=== PATIENT | male | born 1980 | race Caucasian/White ===

== ENCOUNTER 2020-11-14 19:33 | Emergency (ER) | payer OTHER, SELFPAY ==
[2020-11-14 19:35] VITALS: BP 144/82; PULSE 62; RESP 19; TEMP 36.6; O2SAT 98; BMI 25.1
--- NOTE | 2020-11-14 20:18 | HMH.EDUTC ---
[facility] [place] Disposition Clinical Impression: Cough, Wheezing Allergic rhinitis Qualifiers: Allergic rhinitis trigger: unspecified Allergic rhinitis seasonality: seasonal Qualified Code(s): J30.2 - Other seasonal allergic rhinitis Disposition: Home, Self-Care Condition on Discharge: Good Instructions: Cough, DI for Asthma -- Adult Additional Instructions: needs to arrange appointment with pcp-list given needs worked up for possible asthma/copd stop smoking if symptoms worsen or do not improve return or be seen in ed Prescriptions: Albuterol Sulfate [Albuterol Sulfate Hfa] 6.7 gm IH Q6 PRN 30 Days #1 [email or web address] PRN Reason: Cough Transmission Status: Pending to [facility] Loratadine [Claritin 10mg Tablet] 10 mg PO DAILY #30 tab Transmission Status: Pending to [facility] predniSONE [Prednisone 20mg Tab] 20 mg PO BID #10 tab Transmission Status: Pending to [facility] Referrals: Provider,Referral, MD [Primary Care Provider] - Time of Disposition: 20:25 Medical Decision Making - Ar Inquiry Pt receiving controlled substance: No Vital Signs: 11/14/20 19:35 Temperature 97.9 F Temperature Source Oral Pulse Rate [Left Brachial] 62 Respiratory Rate 19 Blood Pressure [Left Arm] 144/82 H Blood Pressure Mean [Left Arm] 102 Blood Pressure Source [Left Arm] Automatic Cuff Blood Pressure Position [Left Arm] Sitting 02 Sat by Pulse Oximetry 98 Oxygen Delivery Method Room Air [facility] [place] HPI - General Chief complaint: Urgent Treatment [facility] Stated complaint: coughing, drainage, head congestion Time Seen by Provider: 11/14/20 20:18 Mode of Arrival: Ambulatory Source of Information: Patient Limitations: No Limitations Description of Symptoms (Recalled from Triage Doc. by RN): PATIENT C/O CHEST CONGESTION AND SEVERE COUGHING WITH EXERTION X MONTHS HEENT Symptoms (Recalled from RN notes): No Resp Symptoms (Recalled from RN notes): Yes Skin Symptoms (Recalled from RN notes): No MS Symptoms (Recalled from RN notes): No Functional Status (Recalled from RN notes): WNL - History of Present Illness Provider Complaint: 39 yr old male presents for coughing and clear drainage for months. pt states he smokes and has stopped for a couple days and still had symptoms. pt states any task causes him to cough. - Related Data Previous Rx's Medication Instructions Recorded Albuterol Sulfate [Albuterol 6.7 gm IH Q6 PRN 30 Days #1 11/14/20 Sulfate Hfa] [email or web address] Loratadine [Claritin 10mg 10 mg PO DAILY #30 tab 11/14/20 Tablet] predniSONE [Prednisone 20mg 20 mg PO BID #10 tab 11/14/20 Tab] Allergies Allergy/AdvReac Type Severity Reaction Status Date / Time No Known Allergies Allergy Verified 08/10/19 22:59 - Worker's Comp Is this a Worker's Comp case?: No [facility] History - Hepatitis A Screen Drug use history?: No High risk sexual behaviors?: No History of sexually transmitted infection?: No Currently employed?: No Childcare worker?: No Do you have indoor plumbing?: Yes Do you have electricity?: Yes Attestation statement:: This patient has been screened for Hepatitis A risk factors. I have reviewed the patient's past medical history: Yes Laterality Cases: Bilateral: Tonsillectomy - Social History Smoking Status: Current every day smoker # Packs/Day (cigarettes): 1 Alcohol Intake: never Occupational Status: other Household Members: family ROS Obtained: Yes Systems reviewed as appropriate & no additional complaints - Constitutional Constitutional: Reports system reviewed and no additional complaints, except as docu, Denies body ache, Denies fatigue - Eyes Eyes: Reports system reviewed and no additional complaints, except as docu, Denies blurry vision - ENT Ears, Nose, Mouth, and Throat: Reports system reviewed and no additional complaints, except as docu, Denies nasal congestion, Denies sore throat - Cardiovascular Cardiovascular: Reports system r
[2020-11-14 20:19] VITALS: BP 144/82; PULSE 62; RESP 19; TEMP 36.6; O2SAT 98
== END 2020-11-14 20:30 | disposition home or self-care (01) ==
PROVIDERS: Emergency Provider Nurse Practitioner Family
DX: J30.2 Other seasonal allergic rhinitis (principal); F17.210 Nicotine dependence, cigarettes, uncomplicated
CPT/HCPCS: 99202; G0463

== ENCOUNTER 2020-11-17 14:50 | Emergency (ER) | payer OTHER, SELFPAY ==
[2020-11-17 14:52] VITALS: BP 140/78; PULSE 87; RESP 18; TEMP 36.7; O2SAT 98; BMI 25.1
[2020-11-17 15:05] VITALS: PULSE 85; RESP 18; TEMP 36.8; O2SAT 99; BMI 25.2
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
[2020-11-17 15:53] VITALS: BP 132/82; PULSE 93; RESP 16; TEMP 36.6
== END 2020-11-17 15:58 | disposition home or self-care (01) ==
PROVIDERS: Emergency Provider Nurse Practitioner Family
DX: T24.202A Burn of second degree of unspecified site of left lower limb, except ankle and foot, initial encounter (principal); X06.2XXA Exposure to ignition of other clothing and apparel, initial encounter; W39.XXXA Discharge of firework, initial encounter; Z23 Encounter for immunization; Y92.017 Garden or yard in single-family (private) house as the place of occurrence of the external cause; F17.210 Nicotine dependence, cigarettes, uncomplicated
CPT/HCPCS: 90715; 99202; G0463

== ENCOUNTER 2021-11-27 15:04 | Emergency (ER) | payer OTHER, SELFPAY ==
[2021-11-27 15:05] VITALS: BP 143/81; PULSE 47; RESP 16; TEMP 36.9; O2SAT 98; BMI 25.1
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
--- NOTE | 2021-11-27 15:31 | ECG_ITS ---
APPROVED REPORT Exam: Resting ECG HR:77 bpm ECG Measurements Heart Rate [address] 148 P 62 QRSd 85 QRS -8 QT 358 T 51 QTc 390 Conclusion SINUS RHYTHM WITH FREQUENT SUPRAVENTRICULAR PREMATURE COMPLEXES POSSIBLE LEFT ATRIAL ENLARGEMENT [-0.1mV P-WAVE IN V1/V2] ABNORMAL RHYTHM ECG UNCONFIRMED REPORT Electronically signed by : Jaydon Jordan MD 11/30/2021 22:22:51
[2021-11-27 16:42] VITALS: BP 132/80; PULSE 48; RESP 17; TEMP 36.9; O2SAT 99
== END 2021-11-27 16:43 | disposition home or self-care (01) ==
PROVIDERS: Emergency Provider Emergency Medicine
DX: L02.214 Cutaneous abscess of groin (principal); R01.1 Cardiac murmur, unspecified; I49.1 Atrial premature depolarization; I49.9 Cardiac arrhythmia, unspecified; F17.210 Nicotine dependence, cigarettes, uncomplicated; Z79.51 Long term (current) use of inhaled steroids; Z79.52 Long term (current) use of systemic steroids; Z79.899 Other long term (current) drug therapy
CPT/HCPCS: 10060; 87070; 87077; 87186; 87205; 93005; 99285

== ENCOUNTER 2021-12-17 17:00 | Emergency (ER) | payer OTHER, SELFPAY ==
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
[2021-12-17 17:35] VITALS: BP 150/92; PULSE 66; RESP 16; TEMP 36.7; O2SAT 96; BMI 25.1
[2021-12-17 17:55] LABS: Apearance,Urine Cloudy (Clear); Color,Urine Yellow (Yellow); Glucose,Urine (UA) Negative (Negative); PH,Urine 5.5 (5.0-8.5); Protein,Urine Trace (Negative); Specific Gravity, Urine >= 1.030 (1.005-1.030)
[2021-12-17 17:56] LABS: Bilirubin,Urine Negative (Negative); Blood, Urine Negative (Negative); Ketones,Urine Negative (Negative); UTC Leukocyte Esterase,Urine Negative (Negative); UTC Nitrate,Urine Negative (Negative); Urobilinogen,Urine 0.2 EU/dl (0.2)
[2021-12-17 17:57] VITALS: BP 150/92; PULSE 66; RESP 16; TEMP 36.7
[2021-12-21 14:14] LABS: Neisseria gonorrhoeae, NAA Negative (Negative)
== END 2021-12-17 17:58 | disposition home or self-care (01) ==
PROVIDERS: Emergency Provider Nurse Practitioner Family
DX: Z20.2 Contact with and (suspected) exposure to infections with a predominantly sexual mode of transmission (principal)
CPT/HCPCS: 81003; 87086; 87088; 87186; 87491; 87591; 99212; G0463

== ENCOUNTER 2022-04-13 13:48 | Emergency (ER) | payer OTHER, SELFPAY ==
[2022-04-13 14:24] VITALS: BP 93/63; PULSE 56; RESP 18; TEMP 37.1; O2SAT 97; BMI 25.8
--- NOTE | 2022-04-13 14:38 | EXP.UTC ---
Discharge Plan Disposition Patient Disposition: Home, Self-Care Condition: Good Prescriptions Prescriptions: New azithromycin [Zithromax] 250 mg tablet 250 mg PO UD DOSE PK Qty: 6 0RF Rx Instructions: Take two (2) tablets today, then one (1) tablet days #2 thru #5 benzonatate [benzonatate] 100 mg capsule 100 mg PO TIDP PRN (Reason: Cough) Qty: 30 0RF methylprednisolone 4 mg Tablets,Dose Pack 4 mg PO DIRECTED Qty: 21 0RF No Action sulfamethoxazole-trimethoprim 1 EACH tablet 1 each PO BID Qty: 20 0RF doxycycline monohydrate 100 MG tablet 100 mg PO Q12 7 Days Qty: 14 0RF albuterol sulfate 8.5 GM HFA aerosol inhaler 6.7 gm IH Q6 PRN (Reason: Cough) 30 Days Qty: 1 0RF Rx Instructions: as needed for wheezing loratadine 10 MG tablet 10 mg PO DAILY Qty: 30 0RF prednisone 20 MG tablet 20 mg PO BID Qty: 10 0RF cephalexin 500 MG capsule 500 mg PO Q6H 10 Days Qty: 40 0RF mupirocin 22 GM ointment 1 applicatio TP TID 7 Days Qty: 1 0RF Referrals Follow up/Referrals: Provider,Referral, MD [Primary Care Provider] - See instructions Activity Restrictions/Add. Instructions Additional Instructions/Restrictions: Drink plenty of fluids. Take tylenol or ibuprofen for pain or fever. Take the medications as directed. Follow up with your regular doctor. GO TO THE ER FOR ANY WORSENING SYMPTOMS Quarantine until you know the results of your covid-19 test. Notify your school or workplace of your results and follow their instructions regarding return to work/school. Clinical Impressions Clinical Impression: Viral syndrome, Bronchitis Stand Alone Forms Stand Alone Forms: Work/School Release Instructions Patient Instructions: Acute Bronchitis, DI for Acute Bronchitis, DI for Viral Syndrome Discharge ED Provider: Robert Quiles [facility] General Stated complaint: congestion, cough Mode of Arrival: Ambulatory Source of Information: Patient Limitations: No Limitations Time Seen by Provider: 04/13/22 14:36 Description of Symptoms (Recalled from Triage Doc. by RN): pt c/o cough, congestion x2 weeks HEENT Symptoms (Recalled from RN notes): Yes Resp Symptoms (Recalled from RN notes): No Skin Symptoms (Recalled from RN notes): No MS Symptoms (Recalled from RN notes): No Functional Status (Recalled from RN notes): na History of Present Illness Provider Complaint: He states that for the past 10 days or so he has had sinus congestion, chest congestion and a cough. Related Data Previous Rx's Medication Instructions Recorded albuterol sulfate 90 mcg/actuation 6.7 gm IH Q6 PRN Cough 30 days ##1 11/14/20 aerosol inhaler loratadine 10 mg tablet 10 mg PO DAILY #30 tabs 11/14/20 prednisone 20 mg tablet 20 mg PO BID #10 tabs 11/14/20 cephalexin 500 mg capsule 500 mg PO Q6H 10 days #40 caps 11/17/20 mupirocin 2 % topical ointment 1 applicatio TP TID 7 days #1 tube 11/17/20 sulfamethoxazole 800 1 each PO BID #20 tabs 11/27/21 mg-trimethoprim 160 mg tablet doxycycline monohydrate 100 mg 100 mg PO Q12 7 days #14 tabs 12/17/21 tablet azithromycin 250 mg tablet 250 mg PO UD DOSE PK #6 tabs 04/13/22 (Zithromax) benzonatate 100 mg capsule 100 mg PO TIDP PRN Cough #30 caps 04/13/22 methylprednisolone 4 mg tablets in 4 mg PO DIRECTED #21 tabs 04/13/22 a dose pack Allergies Allergy/AdvReac Type Severity Reaction Status Date / Time No Known Allergies Allergy Verified 12/17/21 17:39 Worker's Comp Is this a Worker's Comp case?: No PFSH PFSH Social History Smoking Status: Current every day smoker alcohol intake: never current occupational status: other Travel in the last 8 weeks: None household members: family ROS Obtained: Yes All systems reviewed & no additional complaints except as documented Constitutional Constitutional: Reports chills and Reports fever(s) Eyes Eyes: Denies
[2022-04-13 15:30] LABS: Adenovirus,PCR Not Detected (NotDetected); Bordetella Pertussis Not Detected (NotDetected); Chlamydophila Pneumoniae, PCR Not Detected (NotDetected); Coronavirus 19, PCR Not Detected (NotDetected); Coronavirus 229E Not Detected (NotDetected); Coronavirus NL63 Not Detected (NotDetected); Coronavirus OC43 Not Detected (NotDetected); Coronovirus HKU1,PCR Not Detected (NotDetected); Human Metapneumovirus Not Detected (NotDetected); Influenza A, PCR Not Detected (NotDetected); Influenza AH1, 2009 Not Detected (NotDetected); Influenza AH1, PCR Not Detected (NotDetected); Influenza AH3,PCR Not Detected (NotDetected); Influenza B, PCR Not Detected (NotDetected); Mycoplasma Pneumoniae, PCR Not Detected (NotDetected); Parainfluenza 1, PCR Not Detected (NotDetected); Parainfluenza 2, PCR Not Detected (NotDetected); Parainfluenza 3, PCR Not Detected (NotDetected); Parainfluenza 4, PCR Not Detected (NotDetected); Respiratory Syncytial Virus Not Detected (NotDetected)
[2022-04-13 15:34] VITALS: BP 100/64; PULSE 59; RESP 20; TEMP 36.8; O2SAT 98
[2022-04-13 19:02] LABS: Rhinovirus/Enterovirus Detected (NotDetected)
== END 2022-04-13 15:36 | disposition home or self-care (01) ==
PROVIDERS: Emergency Provider Nurse Practitioner Family
DX: J40 Bronchitis, not specified as acute or chronic (principal)
CPT/HCPCS: 87581; 87632; 87798; 99212; C9803; G0463; U0003; U0005